=== PATIENT | female | born 1990 | race Caucasian/White ===

== ENCOUNTER → 2017-04-09 | Outpatient (CLI) | payer OTHER | END | disposition home or self-care (01) | LOC: LAB.O 09:39 | PROVIDERS: ATTEND Family Medicine | DX: Z20.820 Contact with and (suspected) exposure to varicella (principal) ==

== ENCOUNTER → 2017-04-21 | Outpatient (CLI) | payer OTHER ==
--- NOTE | 2017-04-22 09:18 | US ---
EXAM DESCRIPTION: Abdomen,Complete CLINICAL HISTORY: R10.33, R10.13 COMPARISON: None Available. TECHNIQUE: Complete abdominal ultrasound FINDINGS: The liver is normal in appearance. There is no focal hepatic mass. Intrahepatic ductal dilation is not identified. The gallbladder is well seen and unremarkable. There are no gallstones. There is no gallbladder wall thickening. The common bile duct is prominent measuring 7 mm but without more proximal ductal dilation. Correlation with liver function studies is recommended. The pancreas and the spleen are unremarkable. The kidneys are normal in size, shape, and echotexture. The right kidney is 9.6 cm and left kidney 9.7 cm in length. No obstruction or hydronephrosis noted. The IVC and the proximal aorta are unremarkable. The aorta tapers from 1.7 to 1.4 cm. IMPRESSION: 1. Prominent common bile duct without intrahepatic ductal dilation without definite evidence of obstruction. Correlation with serum bilirubin and liver function studies recommended. 2. Remainder of the abdominal sonogram is within the limits of normal. The gallbladder is normal in appearance without stones or wall thickening or edema Electronically signed by: Aiden Payne MD 04/22/2017 9:17 AM CDT
--- NOTE | 2017-04-22 10:34 | US ---
EXAM DESCRIPTION: Pelvic,Non-OB CLINICAL HISTORY: 27 years, Female, R10.33, R10.13 COMPARISON: None. FINDINGS: The uterus is anteflexed and indents the dome of the bladder is estimated at 5.2 x 3.9 x 2.6 cm. There is a small 1.1 cm hypoechoic nodule in the anterior myometrium consistent with a very small fibroid. The endometrium is estimated at 3 mm in thickness. No free pelvic fluid is seen. The right ovary is 1.3 x 2.1 x 1.0 cm. The left ovary is 2.1 x 2.1 x 1.5 cm. No cystic or solid adnexal or ovarian mass is seen. IMPRESSION: 1. Anteflexed uterus with small 1.1 cm fibroid in the anterior myometrium. 2. Otherwise normal examination with normal-appearing adnexal and ovarian structures. Electronically signed by: Aiden Payne MD 04/22/2017 10:32 AM CDT
== END | disposition home or self-care (01) ==
LOC: US 09:51
PROVIDERS: ATTEND Family Medicine
DX: D25.9 Leiomyoma of uterus, unspecified (principal)

== ENCOUNTER → 2017-04-23 | Outpatient (CLI) | payer OTHER | END | disposition home or self-care (01) | LOC: GMAL 12:57 | PROVIDERS: ATTEND Family Medicine | DX: R53.82 Chronic fatigue, unspecified (principal) ==

== ENCOUNTER → 2017-09-22 | Outpatient (CLI) | payer OTHER | END | disposition home or self-care (01) | LOC: LAB.O 14:10 | PROVIDERS: ATTEND Family Medicine | DX: G70.00 Myasthenia gravis without (acute) exacerbation (principal) ==

== ENCOUNTER → 2017-09-30 | Outpatient (CLI) | payer SELFPAY | END | disposition home or self-care (01) | LOC: LAB.O 08:48 | PROVIDERS: ATTEND Family Medicine | DX: J32.8 Other chronic sinusitis (principal) ==

== ENCOUNTER → 2017-09-30 | Outpatient (CLI) | payer OTHER ==
--- NOTE | 2017-10-01 10:15 | CT ---
EXAM DESCRIPTION: Sinuses w/wo Contrast: CT CLINICAL HISTORY: SINUSITIS COMPARISON: None Available. TECHNIQUE: Spiral, axial 2.5 mm scans through the paranasal sinuses and maxillofacial bones without and with IV contrast. Axial 0.6 mm reconstructions. Coronal and sagittal 2.0 mm reconstructions, after contrast. Total Exam DLP: 655.62 mGy-cm. This exam was performed according to our departmental CT dose-optimization program which includes automated exposure control, adjustment of the mA and/or kV according to patient size and/or use of iterative reconstruction technique; to reduce radiation dose to as low as reasonably achievable (ALARA). FINDINGS: Mucoperiosteal thickening in the bilateral maxillary antra. Enhancing soft tissue with air bubbles in the dependent portion of the right antrum. The left ostiomeatal unit is obstructed. Almost complete obstruction of the right ostiomeatal unit. Partial soft tissue involvement of the anterior right ethmoid air cells with complete obstruction of the right nasal passage above the middle turbinate. Small curvilinear densities within this soft tissue which are enhancing. Minimal soft tissue in the left superior nasal passageway and left anterior ethmoid air cells. Also mucoperiosteal thickening posterior ethmoid air cells. Michelle bullosa in the left middle turbinate. Small enhancing curvilinear densities in the superior left nasal passage. Small air-fluid level in the right sphenoid air cell and mucoperiosteal thickening on the right. Sphenoid nasal ostia are partially obstructed. Frontal sinuses are clear. Mastoid air cells are unremarkable. Inner ear structures and bony ossicles are grossly normal. Nasal septum is in the midline. IMPRESSION: 1. Enhancing soft tissue in the right maxillary antrum right anterior ethmoid air cells in the upper third of the right nasal passageway with curvilinear densities which are enhancing. Obstruction of the ostiomeatal unit. This could represent bacterial acute sinusitis and fungal infection. Mass effect on the small septa in the anterior ethmoids and the right superior turbinate. Fungal infection may also be involving the superior left nasal passageway. 2. Chronic sinusitis in other air cells except for frontal sinus. Michelle bullosa in the left middle turbinate. CRITICAL COMMUNICATION: The critical value was discussed directly by phone with doctor at approximately 1000 hours, on October 01, 2017. Electronically signed by: Chuy Anderson MD 10/01/2017 10:14 AM PROCUREMENT AGENT
== END | disposition home or self-care (01) ==
LOC: CT 09:06
PROVIDERS: ATTEND Family Medicine
DX: J32.8 Other chronic sinusitis (principal)